=== PATIENT | female | born 1950 | race Caucasian/White ===

== ENCOUNTER 2016-11-06 09:55 | Emergency (ER) | payer MEDICARE, OTHER ==
[2016-11-06] MEDS ORDERED: SODIUM CHLORIDE 0.9% 1,000 ML IV ONE (10:45)
== END 2016-11-06 12:51 | disposition home or self-care (01) ==
DX: E86.0 Dehydration (principal); I44.4 Left anterior fascicular block

== ENCOUNTER 2016-11-18 10:13 | Outpatient (CLI) | payer MEDICARE, OTHER ==
--- NOTE | 2016-12-02 09:31 | Mammography Report ---
DIGITAL SCREENING MAMMOGRAM: 11/18/2016 CLINICAL HISTORY: A 66-year-old female in for a routine screening mammogram. Patient's sister had b reast cancer at age 75. Patient has no breast surgical history. COMPARISON: 09/30/2005, 07/07/2009, 08/21/2012, 10/07/2014. TECHNIQUE: Craniocaudad and oblique lateral views of each breast were obtained with Hologic full-fie ld digital mammography. To complement the exam, an axillary exaggerated craniocaudad view of the lef t breast was done. FINDINGS: Extremely dense breasts are noted bilaterally. No significant clusters of calcification are seen. No significant masses are noted. No change is no osiel. IMPRESSION: BREASTS APPEAR RADIOGRAPHICALLY BENIGN. BI-RADS 1. Negative. RECOMMENDATION: Annual bilateral screening mammography. STANDARD QUALIFYING STATEMENTS 1. This examination was reviewed with the aid of Computer-Aided Detection (CAD). 2. A negative or benign imaging report should not delay biopsy if clinically suspicious findings are present. Consider surgical consultation if warranted. More than 5% of cancers are not identified by i maging. 3. Dense breasts may obscure an underlying neoplasm. JOB #: [id number] EXT JOB #:[id number]
== END 2016-11-18 10:14 | disposition home or self-care (01) ==
LOC: DI.S 10:13
PROVIDERS: ATTEND Internal Medicine
DX: Z12.31 Encounter for screening mammogram for malignant neoplasm of breast (principal); Z80.3 Family history of malignant neoplasm of breast
CPT/HCPCS: 77067

== ENCOUNTER 2016-11-22 08:03 | Outpatient (CLI) | payer MEDICARE, OTHER ==
--- NOTE | 2016-11-22 11:22 | DEXA Report ---
DEXA SCAN: 11/22/2016 CLINICAL HISTORY: Postmenopausal. TECHNIQUE: Dual energy x-ray absorptiometry (DXA) was performed on a [employer] IP system. Regions measured are the AP spine, femoral neck, and, if needed, forearm. COMPARISON: None. In accordance with the International Society for Clinical Densitometry (ISCD) guidelines, data from previous exams may be reanalyzed using current recommendations and techniques. This is done to allow a more accurate basis for comparison with the current study. FINDINGS: The patient's bone density shows significant osteopenia according to World Health Organization guidelines. The data for the lumbar spine is as follows: REGION BMD (g/cm/cm) T-SCORE Z-SCORE L1 0.780 -2.9 -1.0 L2 0.752 -3.7 -1.8 L3 0.901 -2.5 -0.5 L4 1.148 -0.4 1.5 TOTAL 0.910 -2.3 -0.3 NOTE: All evaluable vertebrae are used for classification. The data for the hip is as follows: REGION BMD (g/cm/cm) T-SCORE Z-SCORE Neck 0.710 -2.4 -0.6 TOTAL 0.7410 -2.1 -0.6 NOTE: The femoral neck or total proximal femur, whichever is lowest, is used for classification. IMPRESSION: THE WHO CLASSIFICATION BASED ON THE INTERNATIONAL REFERENCE STANDARD IS SIGNIFICANT OSTEOPENIA. THE FRACTURE RISK IS INCREASED. RECOMMENDATION: Patients with diagnosis of osteoporosis or osteopenia should have regular bone mineral density assessment. For those eligible for Medicare, routine testing is allowed once every 2 years. Testing frequency can be increased for patients who have rapidly progressing disease or for those who are receiving medical therapy to restore bone mass. COMMENT: World Health Organization (WHO) definitions for osteoporosis and osteopenia: NORMAL BMD: T-score at -1.0 or higher, fracture risk is low. OSTEOPENIA BMD: T-score between -1.0 and -2.5, fracture risk is increased. OSTEOPOROSIS BMD: T-score at -2.5 or lower, fracture risk high. National Osteoporosis Foundation recommends: 1. Obtain adequate dietary calcium (at least 1200 mg per day) and vitamin D (400 -800 international units per day). 2. Participate, as appropriate, in regular weightbearing and muscle- strengthening exercise. 3. Avoid tobacco use and reduce alcohol and caffeine intake. 4. For more detailed information see the website at www.NOF.org. MTDD
== END 2016-11-22 08:04 | disposition home or self-care (01) ==
LOC: DI 08:03
PROVIDERS: ATTEND Internal Medicine
DX: M85.89 Other specified disorders of bone density and structure, multiple sites (principal)
CPT/HCPCS: 77080

== ENCOUNTER 2017-01-16 12:48 | Day surgery (SDC) | payer MEDICARE, OTHER ==
[~2017-01-16 12:48] MED LIST: MIDAZOLAM 2 MG/2 ML VIAL IVP ONE; fentaNYL 100 MCG/2 ML VIAL IVP ONE
[2017-01-16] MEDS ORDERED: LACTATED RINGERS 1,000 ML IV ONE ×3 (13:15→15:47)
[2017-01-16 17:19] VITALS: BP 128/84
== END 2017-01-16 12:49 | disposition home or self-care (01) ==
LOC: SDS 12:48
PROVIDERS: ATTEND Surgery
PROC: 0DBM8ZX Excision of Descending Colon, Via Natural or Artificial Opening Endoscopic, Diagnostic (ICD-10-PCS; principal; 2017-01-16 14:00)
DX: R19.4 Change in bowel habit (principal); D12.4 Benign neoplasm of descending colon; K64.8 Other hemorrhoids; F32.9 Major depressive disorder, single episode, unspecified; F41.9 Anxiety disorder, unspecified; Z82.49 Family history of ischemic heart disease and other diseases of the circulatory system
CPT/HCPCS: 45385; J7120; 88305

== ENCOUNTER 2017-07-03 10:09 | Day surgery (SDC) | payer MEDICARE, OTHER ==
[2017-07-03] MEDS ORDERED: LACTATED RINGERS 1,000 ML IV ONE ×2 (10:19→11:11)
[2017-07-03] MEDS ORDERED: fentaNYL 100 MCG/2 ML VIAL IVP ONE (11:55)
[2017-07-03] MEDS ORDERED: MIDAZOLAM 2 MG/2 ML VIAL IVP ONE (11:55)
[2017-07-03 12:55] VITALS: BP 118/76
== END 2017-07-03 10:10 | disposition home or self-care (01) ==
LOC: SDS 10:09
PROVIDERS: ATTEND Surgery
PROC: 0DBH8ZX Excision of Cecum, Via Natural or Artificial Opening Endoscopic, Diagnostic (ICD-10-PCS; principal; 2017-07-03 11:30)
DX: D12.0 Benign neoplasm of cecum (principal); K64.8 Other hemorrhoids; J45.909 Unspecified asthma, uncomplicated
CPT/HCPCS: 45380; J7120

== ENCOUNTER 2019-01-14 14:05 | Outpatient (CLI) | payer MEDICARE, OTHER ==
--- NOTE | 2019-01-15 08:06 | Mammography Report ---
Reason: SCREENING MAMMO Procedure Date: 01/14/2019 Accession Number: [id number] / [id number] Procedure: SHERRI - Screening Mammo w/Kael CPT Code: FULL RESULT: EXAM: Screening Mammo w/Kael DATE: 01/14/2019 2:52 PM CLINICAL HISTORY: Screening encounter. History of nulliparity and early menses. Family history of breast cancer in a sister at the age of 40. TECHNIQUE: (B) - Bilateral CC and MLO views were obtained. Left laterally exaggerated CC view was obtained. COMPARISON: 11/18/2016 through 07/07/2009. PARENCHYMAL PATTERN: (D) - The breast(s) demonstrate(s) heterogeneously dense fibroglandular parenchyma. FINDINGS: There are coarse typically benign right breast calcifications. There are no suspicious masses, calcifications, or areas of distortion. IMPRESSION: Benign findings. BI-RADS category 2. RECOMMENDATION: (ANNUAL) - Recommend routine annual screening mammography. BI-RADS CATEGORY: (2) - Benign Findings. STANDARD QUALIFYING STATEMENTS: 1. This examination was not reviewed with the aid of Computer-Aided Detection (CAD). 2. A negative or benign imaging report should not preclude biopsy if clinically suspicious findings are present. 3. Dense breasts may obscure an underlying neoplasm. 4. This examination was reviewed with the aid of 3D breast imaging (tomosynthesis).
== END 2019-01-14 14:06 | disposition home or self-care (01) ==
LOC: DI 14:05
PROVIDERS: ATTEND Internal Medicine
DX: Z12.31 Encounter for screening mammogram for malignant neoplasm of breast (principal); Z80.3 Family history of malignant neoplasm of breast
CPT/HCPCS: 77063; 77067

== ENCOUNTER 2019-01-22 10:26 | Outpatient (CLI) | payer MEDICARE, OTHER ==
--- NOTE | 2019-01-25 08:35 | DEXA Report ---
Reason: OSTEOPENIA Procedure Date: 01/22/2019 Accession Number: [id number] / [id number] Procedure: DEX - Dexa Spine and/or Hip CPT Code: FULL RESULT: EXAM: Dexa Spine and/or Hip DATE: 01/22/2019 11:16 AM CLINICAL HISTORY: OSTEOPENIA TECHNIQUE: Dual energy x-ray absorptiometry (DXA) was performed on a [employer] System. Regions measured are the AP Spine, femoral neck, and if needed forearm. COMPARISON: 11/22/2016. In accordance with the International Society for Clinical Densitometry (ISCD) guidelines, data from previous exams may be reanalyzed using current recommendations and techniques. This is done to allow a more accurate basis for comparison with the current study. FINDINGS: The data for the lumbar spine is as follows: BMD (g/cm/cm) T-SCORE Z-SCORE REGION L1 0.786 -2.9 -1.0 L2 0.771 -3.6 -1.7 L3 0.896 -2.5 -0.7 L4 1.130 -0.6 1.3 TOTAL 0.898 -2.3 -0.5 NOTE: All evaluable vertebrae are used for classification The data for the hip is as follows: BMD (g/cm/cm) T-SCORE Z-SCORE REGION Neck 0.701 -2.4 -0.6 TOTAL 0.724 -2.2 -0.7 DXA RESULTS SUMMARY: Spine SCAN DATE AGE BMD CHANGE VS CHANGE VS PREVIOUS PREVIOUS % 01[age]22/2019 [age] 0.898 -0.012 -1.3 11/22/2016 [age] 0[age]910 * Denotes significant change at the 95% confidence level. Denotes dissimilar scan types or analysis methods. DXA RESULTS SUMMARY: Hip SCAN DATE AGE BMD CHANGE VS CHANGE VS PREVIOUS PREVIOUS % 01[age]22/2019 68.3 0.724 -0.017 -2.3 11/22/2016 [age] 0.741 * Denotes significant change at the 95% confidence level. Denotes dissimilar scan types or analysis methods. IMPRESSION: THE WHO CLASSIFICATION BASED ON THE INTERNATIONAL REFERENCE STANDARD IS OSTEOPENIA. THE FRACTURE RISK IS INCREASED. RECOMMENDATION: Patients with diagnosis of osteoporosis or osteopenia should have regular bone mineral density assessment. For those eligible for Medicare, routine testing is allowed once every 2 years. Testing frequency can be increased for patients who have rapidly progressing disease or for those who are receiving medical therapy to restore bone mass. COMMENT: World Health Organization (WHO) definitions for osteoporosis and osteopenia: NORMAL BMD: T-score at -1.0 or higher, fracture risk is low OSTEOPENIA BMD: T-score between -1.0 and -2.5, fracture risk is increased. OSTEOPOROSIS BMD: T-score at -2.5 or lower, fracture risk is high. National Osteoporosis Foundation recommends: 1. Obtain adequate dietary calcium (at least 1200 mg per day) and vitamin D (400-800 international units per day). 2. Participate, as appropriate, in regular weightbearing and muscle-strengthening exercise. 3. Avoid tobacco use and reduce alcohol and caffeine intake. 4. For more detailed information see the website at www.NOF.org.
== END 2019-01-22 10:27 | disposition home or self-care (01) ==
LOC: DI 10:26
PROVIDERS: ATTEND Internal Medicine
DX: M85.89 Other specified disorders of bone density and structure, multiple sites (principal); Z78.0 Asymptomatic menopausal state
CPT/HCPCS: 77080

== ENCOUNTER 2020-02-28 08:58 | Outpatient (CLI) | payer MEDICARE, OTHER ==
--- NOTE | 2020-02-29 09:43 | Ultrasound Report ---
LIMITED ULTRASOUND OF RIGHT BREAST: 02/28/2020 CLINICAL: Palpable right breast lump. Comparison is made to exams dated: 02/28/2020 mammogram, 01/14/2019 mammogram, 11/18/2016 mammogram, 03/2015 mammogram, 08/21/2012 ultrasound, and 08/21/2012 mammogram - [facility]. Real-time ultrasound of the right breast 8 o'clock and 11 o'clock regions was performed. Felder scale images of the real-time examination were reviewed. No significant abnormalities were seen sonographically in the right breast. Specifically, no finding to correspond to the patient's palpable abnormality at the 11:00 position, or the mammographic asymm etry seen at 8:00. IMPRESSION: PROBABLY BENIGN No sonographic correlates to the palpable right breast abnormality, or the mammographic abnormality a t 8:00. These findings likely represent dense fibrous tissue and overlapping glandular tissue and are probaby benign. A follow-up mammogram and an ultrasound in 6 months is recommended to demonstrate stability. Findings and recommendations were conveyed to the patient at time of exam. This exam was interpreted at Station ID: [id number]. Electronically Signed By: Jessica hall/:02/28/2020 10:32:42 Ultrasound BI-RADS: 3 Probably benign BI-RADS CATEGORY: (3) - 3 Mammo and [place] [id number] 6 month follow-up LATERALITY: (B)
--- NOTE | 2020-02-29 09:43 | Mammography Report ---
BILATERAL DIGITAL DIAGNOSTIC MAMMOGRAM 3D/2D: 02/28/2020 CLINICAL: Palpable right breast lump. Family history of breast cancer. Comparison is made to exams dated: 01/14/2019 mammogram, 11/18/2016 mammogram, 10/07/2014 mammogram, ultrasound, 08/21/2012 mammogram, and 07/07/2009 mammogram - [facility]. The tissue of both breasts is heterogeneously dense. This may lower the sensitivity of mammography. There is a new 2.4 cm round low density focal asymmetry with an indistinct margin in the right breast at 11 o'clock middle depth. Finding is seen best on tomography. This correlates as palpated. There also is a new 2.5 cm round asymmetry with an indistinct margin in the right breast at 8 o'clock posterior depth. Finding is seen best on tomography. No other significant masses, calcifications, or other findings are seen in either breast. IMPRESSION: INCOMPLETE: NEEDS ADDITIONAL IMAGING EVALUATION The new 2.4 cm round low density focal asymmetry in the right breast at 11 o'clock middle depth is in determinate. The new 2.5 cm round asymmetry in the right breast at 8 o'clock posterior depth is indeterminate. An ultrasound is recommended. This was performed immediately following this exam. This exam was interpreted at Station ID: [id number]. NOTE: For mammograms, a report in lay terms will be sent to the patient. Approximately 15% of breast malignancies will not be visualized mammographically. In the management of a palpable breast mass, a negative mammogram must not discourage biopsy of a clinically suspicious lesion. Electronically Signed By: Jessica hall/:02/28/2020 10:20:57 ACR BI-RADS Category 0: Incomplete 3340F PARENCHYMAL PATTERN: (D) - The breast(s) demonstrate(s) heterogeneously dense fibroglandular parenchy ma. BI-RADS CATEGORY: (0) - 0 Ultrasound [id number] Immediate follow-up LATERALITY: (B)
== END 2020-02-28 08:59 | disposition home or self-care (01) ==
LOC: DI 08:58
PROVIDERS: ATTEND Internal Medicine
DX: N63.15 Unspecified lump in the right breast, overlapping quadrants (principal); Z80.3 Family history of malignant neoplasm of breast
CPT/HCPCS: 76642; 77066

== ENCOUNTER 2021-02-12 09:52 | Outpatient (CLI) | payer MEDICARE, OTHER ==
--- NOTE | 2021-02-12 12:12 | DEXA Report ---
PROCEDURE: Dexa Spine and/or Hip INDICATIONS: OSTEOPORSIS TECHNIQUE: Dual energy x-ray absorptiometry (DXA) was performed on a [employer] System. Regions measur ed are the AP Spine, femoral neck, and if needed forearm. COMPARISON: None. FINDINGS: Lumbar Spine: Bone Mineral Density 0.885 g/cm/cm,T score -2.5, osteoporosis Left Hip: Bone Mineral Density 0.729 g/cm/cm,T score -2.2, osteopenia Left Femoral Neck: Bone Mineral Density 0.674 g/cm/cm, T score -2.6, osteoporosis (T score greater or equal to -1.0: NORMAL) (T score from -1.1 to -2.4: OSTEOPENIA) (T score less than or equal to -2.5 to: OSTEOPOROSIS) Impression: Bone mineral density consistent with osteoporosis Patients with diagnosis of osteoporosis or osteopenia should have regular bone mineral density assess ment. For those eligible for Medicare, routine testing is allowed once every 2 years. Testing frequ ency can be increased for patients who have rapidly progressing disease or for those who are receivin g medical therapy to restore bone mass. Reviewed by: Eliu Mcclain on 02/12/2021 12:11 PM PDT Approved by: Eliu Mcclain on 02/12/2021 12:11 PM PDT Station ID: [id number]
== END 2021-02-12 09:53 | disposition home or self-care (01) ==
LOC: DI 09:52
PROVIDERS: ATTEND Internal Medicine
DX: M81.0 Age-related osteoporosis without current pathological fracture (principal)

== ENCOUNTER 2021-02-12 10:00 | Outpatient (CLI) | payer MEDICARE, OTHER ==
--- NOTE | 2021-02-12 10:22 | XRAY Report ---
PROCEDURE: Hip w/Pelvis 2-3V RT INDICATIONS: RT HIP PAIN TECHNIQUE: AP pelvis with lateral view(s) of the right hip(s). COMPARISON: None. FINDINGS: Bones: No fractures or dislocations. Pelvic ring appears intact. No suspicious bony lesions. Soft tissues: The visualized bowel gas pattern is normal. No suspicious soft tissue calcifications. IMPRESSION: This is a normal study. Reviewed by: Rodolfo Bynum MD on 02/12/2021 10:21 AM PDT Approved by: Rodolfo Bynum MD on 02/12/2021 10:21 AM PDT Station ID: [id number]
== END 2021-02-12 10:01 | disposition home or self-care (01) ==
LOC: DI 10:00
PROVIDERS: ATTEND Internal Medicine
DX: M25.551 Pain in right hip (principal); M81.0 Age-related osteoporosis without current pathological fracture

== ENCOUNTER 2021-06-13 14:49 | Outpatient (CLI) | payer MEDICARE, OTHER ==
--- NOTE | 2021-06-14 00:07 | Ultrasound Report ---
PROCEDURE: Pelvic w/Transvaginal INDICATIONS: PELVIC PAIN TECHNIQUE: Real-time scanning was performed of the pelvic organs, with image documentation. Additional endovagi nal scanning was necessary due to incomplete visualization of the adnexal and endometrial structures by transabdominal scanning. COMPARISON: None. FINDINGS: No pathologic free abdominal or pelvic fluid. Uterus: Uterus is anteverted and measures 7.5 x 2.8 x 3.7 cm. The endometrium measures up to approxi mately 0.4 cm. Multiple uterine fibroids are demonstrated. These include a right anterior intramural fibroid measuring 2.5 x 1.8 x 2.5 cm, a right posterior tumoral fibroid measuring 1.4 x 1.3 x 1.6 cm, and a right posterior vertebral fibroid measuring 1 x 1 x 1.2 cm. A small amount of fluid is noted i n the cervical canal. Ovaries: The right ovary measures 2.4 x 0.8 x 1 cm and the left ovary measures 2 x 1 x 1.2 cm. No ad nexal masses identified. IMPRESSION: 1. Multiple intramural uterine fibroids demonstrated. Reviewed by: Nicholas Fuentes MD on 06/14/2021 12:05 AM PST Approved by: Nicholas Fuentes MD on 06/14/2021 12:05 AM PST Station ID: [id number]
== END 2021-06-13 14:50 | disposition home or self-care (01) ==
LOC: DI 14:49
PROVIDERS: ATTEND Internal Medicine
DX: D25.1 Intramural leiomyoma of uterus (principal)

== ENCOUNTER 2022-03-22 08:12 | Outpatient (CLI) | payer MEDICARE, OTHER ==
--- NOTE | 2022-03-22 09:01 | Mammography Report ---
BILATERAL DIGITAL DIAGNOSTIC MAMMOGRAM 3D/2D: 03/22/2022 CLINICAL: 2 year follow up of the right breast, due for bilateral imaging. Comparison is made to exams dated: 02/28/2020 mammogram, 01/14/2019 mammogram, 11/18/2016 mammogram, 03/2015 mammogram, and 08/21/2012 mammogram - [facility]. Both breasts are heterogeneously dense, which may obscure small masses (category c / 51-75% glandula r tissue). No significant masses, calcifications, or other findings are seen in either breast. There has been no significant interval change. IMPRESSION: NEGATIVE There is no mammographic evidence of malignancy. A 1 year screening mammogram is recommended. Based on the Tyrer Cuzick model (a risk assessment model) the patients lifetime risk is 13.4% and he r 10 year risk is 10.1%. According to the ACR, ACS, and NCCN guidelines, an annual breast MRI exam al peewee with mammogram is recommended if the patients lifetime risk is 20% or greater. This exam was interpreted at Station ID: [id number]. NOTE: For mammograms, a report in lay terms will be sent to the patient. Approximately 15% of breast malignancies will not be visualized mammographically. In the management of a palpable breast mass, a negative mammogram must not discourage biopsy of a clinically suspicious lesion. Electronically Signed By: Jer Delgado M.D., jr/peña:03/22/2022 08:42:44 ACR BI-RADS Category 1: Negative 3341F PARENCHYMAL PATTERN: (D) - The breast(s) demonstrate(s) heterogeneously dense fibroglandular paradilsony ma. BI-RADS CATEGORY: (1) - 1 RECOMMENDATION: (ANNUAL) - Recommend routine annual screening mammography. [id number] 1 year screening LATERALITY: (B)
== END 2022-03-22 08:13 | disposition home or self-care (01) ==
LOC: DI 08:12
PROVIDERS: ATTEND Internal Medicine
DX: R92.8 Other abnormal and inconclusive findings on diagnostic imaging of breast (principal)

== ENCOUNTER 2022-12-17 09:51 | Day surgery (SDC) | payer MEDICARE, OTHER ==
[2022-12-17] MEDS ORDERED: LACTATED RINGERS 1,000 ML IV ONE ×2 (09:57→12:27)
--- NOTE | 2022-12-17 11:10 | ANESTHESIA ---
Pre-Anesthesia VS, & Labs - Diagnosis history of colon polyps - Procedure colonoscopy Vital Signs: Temp Pulse Resp BP Pulse Ox O2 Flow Rate 36.4 C L 100 16 146/100 H 98 0 12/17/22 10:05 12/17/22 10:05 12/17/22 10:05 12/17/22 10:05 12/17/22 10:05 12/17/22 10:05 Height: 5 ft 4 in Weight (kg): 55 kg Body Mass Index: 20.8 BMI Classification: Normal - NPO >8 hours - Is Patient ?: No Home Medications and Allergies Home Medications: Ambulatory Orders Melatonin/Pyridoxine [Melatonin 5 mg Tablet] 1 each PO HS 12/16/22 Calcium Carbonate/Vitamin D3 [Calcium 250-Vit D3 125 Tablet] 1 each PO DAILY 12/17/22 Multivitamin 1 tab ORAL DAILY 12/17/22 Melatonin/Pyridoxine [Melatonin 5 mg Tablet] 1 each PO HS 12/16/22 Calcium Carbonate/Vitamin D3 [Calcium 250-Vit D3 125 Tablet] 1 each PO DAILY 12/17/22 Multivitamin 1 tab ORAL DAILY 12/17/22 Allergies/Adverse Reactions: Allergies Allergy/AdvReac Type Severity Reaction Status Date / Time No Known Drug Allergies Allergy Verified 07/03/17 10:38 Anes History & Medical History - Anesthetic History Anesthesia Complications: reports: No previous complications - Medical History Cardiovascular: reports: None Pulmonary: reports: None Gastrointestinal: reports: None Urinary: reports: None Neuro: reports: None Musculoskeletal: reports: None Endocrine/Autoimmune: reports: None Blood Disorders: reports: None Skin: reports: None Smoking Status: Never smoker Psychosocial: reports: Alcohol (Wine several times per week) History of Cancer?: No - Surgical History General: reports: Appendectomy, Other Eyes Ears Nose Throat (EENT): reports: Tonsil/Adenoidectomy Orthopedic: reports: Other Exam General: Alert, Oriented x3, Cooperative, No acute distress Dental: WNL Mouth Openin Fingerbreadth Neck Mobility: Normal Mallampati classification: II Thyromental Distance: 4-6 cm Mental/Cognitive Status: Alert/Oriented X3, Normal for patient Plan Anesthesia Type: General, Total IV Consent for Procedure(s) Verified and Reviewed: Yes Code Status: Attempt Resuscitation ASA classification: 2-Mild systemic disease Is this case an emergency?: No
[2022-12-17] MEDS ORDERED: PROPOFOL 500 MG/50 ML 500 MG/50 ML VIAL ONE (11:34)
[2022-12-17] MEDS ORDERED: SIMETHICONE 40 MG/0.6 ML 30 ML BOTTLE PO ONE (11:56)
[2022-12-17 12:53] VITALS: BP 116/68
--- NOTE | 2022-12-17 14:47 | ANESTHESIA POST OP EVALUATION ---
Anesthesia Post Eval - Post Anesthesia Eval Vitals: Last Vital Signs Temp 36.2 C L 12/17/22 12:50 Pulse 67 12/17/22 12:50 Resp 16 12/17/22 12:50 BP 116/68 12/17/22 12:50 Pulse Ox 99 12/17/22 12:50 O2 Flow Rate 0 12/17/22 10:05 CV Function Including HR & BP: Stable Pain Control: Satisfactory Nausea & Vomiting: Negative Mental Status: Baseline Respiratory Status: Airway Patent Hydration Status: Satisfactory Anesthesia Complications: None
== END 2022-12-17 09:52 | disposition home or self-care (01) ==
LOC: SDS 09:51
PROVIDERS: ATTEND Surgery
PROC: 0DBP8ZZ Excision of Rectum, Via Natural or Artificial Opening Endoscopic (ICD-10-PCS; 2022-12-17)
PROC: 0DBK8ZZ Excision of Ascending Colon, Via Natural or Artificial Opening Endoscopic (ICD-10-PCS; principal; 2022-12-17 11:15)
DX: Z12.11 Encounter for screening for malignant neoplasm of colon (principal); D12.2 Benign neoplasm of ascending colon; K62.1 Rectal polyp; K57.30 Diverticulosis of large intestine without perforation or abscess without bleeding
CPT/HCPCS: 45380; A9270; J7120

== ENCOUNTER 2023-08-04 15:37 | Outpatient (CLI) | payer MEDICARE, OTHER ==
--- NOTE | 2023-08-05 08:34 | DEXA Report ---
PROCEDURE: Dexa Spine and/or Hip INDICATIONS: OSTEOPOROSIS TECHNIQUE: Dual energy x-ray absorptiometry (DXA) was performed on a [employer] System. Regions measur ed are the AP Spine, femoral neck, and if needed forearm. COMPARISON: DEXA, 02/12/2021. FINDINGS: Lumbar Spine: Bone Mineral Density: 0.883 g/cm/cm,T score: -2.5. Left Femoral Neck: Bone Mineral Density: 0.641 g/cm/cm, T score: -2.9. Left Hip: Bone Mineral Density: 0.697 g/cm/cm,T score: -2.5. (T score greater or equal to -1.0: NORMAL) (T score from -1.1 to -2.4: OSTEOPENIA) (T score less than or equal to -2.5 to: OSTEOPOROSIS) Impression: 1. By WHO criteria, this patient has osteoporosis. 2. Compared to last exam, the patient's bone mineral density in lumbar spine and left hip is not sign ificantly changed by statistical analysis. Patients with diagnosis of osteoporosis or osteopenia should have regular bone mineral density assess ment. For those eligible for Medicare, routine testing is allowed once every 2 years. Testing frequ ency can be increased for patients who have rapidly progressing disease or for those who are receivin g medical therapy to restore bone mass. Reviewed by: Hollie Connolly MD on 08/05/2023 8:33 AM PST Approved by: Hollie Connolly MD on 08/05/2023 8:33 AM PST Station ID: [id number]
== END 2023-08-04 15:38 | disposition home or self-care (01) ==
LOC: DI 15:37
PROVIDERS: ATTEND Internal Medicine
DX: M81.0 Age-related osteoporosis without current pathological fracture (principal)